=== PATIENT | male | born 1970 | race Caucasian/White ===

== ENCOUNTER → 2016-04-02 | Day surgery (SDC) | payer BC ==
[2016-03-23 12:13] VITALS: BMI 67.0
--- NOTE | 2016-03-23 12:45 | PAT Medication Instructions ---
Service Date Mar 23, 2016. Current Home Medication List Aspirin (Aspirin Ec), 81 MG PO HS Fluticasone Propionate (Nasal) (Flonase Allergy Relief), 1 SPRAY NA BID Hydrochlorothiazide (Hctz), 25 MG PO HS Ketoconazole (Ketoconazole), 1 DOSE TOP DAILY PRN for ABDOMEN Sertraline (Zoloft), 50 MG PO HS Zolpidem Tartrate (Ambien), 10 MG PO HS Medication Instructions For Your Scheduled Surgery - Check with surgeon for instructions: Aspirin (Aspirin Ec), 81 MG PO HS - Hold the following medications 24 hours prior to surgery: Ketoconazole (Ketoconazole), 1 DOSE TOP DAILY PRN for ABDOMEN - Take the following medications the morning of surgery with a sip of water: Fluticasone Propionate (Nasal) (Flonase Allergy Relief), 1 SPRAY NA BID - Take the following medications as scheduled the night before surgery: Zolpidem Tartrate (Ambien), 10 MG PO HS Sertraline (Zoloft), 50 MG PO HS Hydrochlorothiazide (Hctz), 25 MG PO HS Fluticasone Propionate (Nasal) (Flonase Allergy Relief), 1 SPRAY NA BID If you have any questions please call us at [phone] (Chelsea Mcgregor PA-C) or [phone] or [phone]
[2016-03-23 13:08] LABS: BASO % 0.4 %; BASO ABS # 0.04 K/uL (0-0.2); COMPLETE YES; EOS % 4.3 %; HEMATOCRIT 42.9 % (42-52); IG% 0.2 %; LYMPH % 24.5 %; LYMPH ABS # 2.34 K/uL (1.2-3.4); MEAN CELL VOLUME 96.4 fL (80-100); MEAN CORPUSCULAR HEMOGLOBIN 31.9 pg (25-34); MEAN CORPUSCULAR HGB CONC 33.1 g/dl (32-36); MEAN PLATELET VOLUME 9.7 fL (7.4-10.4); MONO % 9.2 %; NEUT % 61.4 %; PLATELET COUNT 274 K/uL (130-400); RED BLOOD COUNT 4.45 M/uL (4.7-6.1); WHITE BLOOD COUNT 9.57 K/uL (4.8-10.8)
[2016-03-23 13:36] LABS: BUN/CREATININE RATIO 22.3 (10-20); CALCIUM 9.2 mg/dl (8.5-10.1); CREATININE 0.65 mg/dl (0.60-1.40); POTASSIUM 3.4 mmol/L (3.5-5.1)
--- NOTE | 2016-04-01 15:36 | History and Physical ---
History & Physical Date Apr 01, 2016. Chief Complaint nasal obstruction History of Present Illness The patient is a 46 year old male with complaints of septal deviation Additional History Hepatic Disease: No Endocrine Disorder: No Kidney Disease: No Hypertension: Yes Heart Disease: No Bleeding Tendencies: No Infectious Diseases: No Allergies Coded Allergies: Acetaminophen (Verified Allergy, Mild, DOESNT WORK AND CONSTIPATION, ) BEE STING (Verified Allergy, Mild, HIVES, 03/23/16) Oxycodone (Verified Allergy, Mild, DOESNT WORK AND CONSTIPATION, 03/23/16) Home Medications Scheduled Aspirin (Aspirin Ec), 81 MG PO HS Fluticasone Propionate (Nasal) (Flonase Allergy Relief), 1 SPRAY NA BID Hydrochlorothiazide (Hctz), 25 MG PO HS Sertraline (Zoloft), 50 MG PO HS Zolpidem Tartrate (Ambien), 10 MG PO HS Scheduled PRN Ketoconazole (Ketoconazole), 1 DOSE TOP DAILY PRN for ABDOMEN Physical Examination Skin: warm/dry, no rash Eyes: normal inspection, EOMI, sclerae normal ENT: normal ENT inspection, pharynx normal Head: normocephalic, atraumatic Neck: supple, no adenopathy, trachea midline Respiratory/Chest: lungs clear, normal breath sounds, no respiratory distress Cardiovascular: regular rate, rhythm, no edema, no murmur Abdomen / GI: normal bowel sounds, non tender Back: normal inspection Extremities: normal inspection, normal range of motion Neurologic/Psych: no motor/sensory deficits, alert, normal reflexes, oriented x 3 Diagnosis septal deviation Plan of Treatment septoplasty, celon turbinates
[~2016-04-02] VITALS: Ht 175.3 cm; Wt 203.2 kg
[~2016-04-02] MED LIST: ACET-749 PO; ASPI81TA28 PO; ATROPINE SULFATE 0.1 MG/ML 5ML SYR IV PRN; CEFAZOLIN 3000 MG/65 ML D5W IV SCH; EpHEDrine SULFATE INJ 50 MG/ML AMP IV PRN; FENTANYL CITRATE INJ 50 MCG/1 ML 2 ML VIAL IV PRN; FENTANYL CITRATE INJ 50 MCG/1 ML 2 ML VIAL ONE; FLUT0.15; HYDR25TA4 PO; IBUPROFEN 600 MG TAB PO PRN; KETAMINE HCL INJ 50 MG/ML 10 ML VIAL ONE; KETOROLAC TROMETHAMINE 30 MG/ML VIAL IV. PRN; LACTATED RINGER'S 1000ML 1,000 ML IV SCH; LIDOCAINE/EPINEPHRINE 2% 1:200,000 20 ML SDV INJ ONE; MIDAZOLAM HCL 1 MG/ML 2ML VIAL ONE; MIX: 4% LIDOCAINE 4ML W/1 ML EPI 1:1000 TOP ONE; MUPIROCIN 2% OINT 22 GM TUBE TOP ONE; NZRCR TOP; ONDANSETRON INJ 2 MG/ML 2 ML VIAL IV PRN; ONDANSETRON INJ 2 MG/ML 2 ML VIAL ONE; SERT50TA PO; SODIUM CHLORIDE 0.9% 1000ML 1,000 ML IV SCH; TETRACAINE 4% TOPICAL SOLUTION TOP ONE; ZOLP10TA PO; [UNRECOGNIZED DRUG - SUPPLY] TOP ONE
--- NOTE | 2016-04-02 07:12 | History & Physical Bridge Note ---
H&P Re-Evaluation Bridge Note: I have examined the patient, reviewed the History & Physical and in the interval since the performance of the History & Physical I have noted the following changes of clinical significance: No changes noted
[2016-04-02 08:41] VITALS: BP 150/80; PULSE 62; TEMP 36.8; O2SAT 93; Ht 175.3 cm; Wt 203.2 kg
--- NOTE | 2016-04-02 11:01 | Discharge Instructions ---
Discharge Instructions Admission Reason for Admission: Septal Deviation Discharge Discharge Diagnosis / Problem: same Discharge Goals Goal(s): Improve function Activity Recommendations Activity Limitations: resume your previous activity . Instructions / Follow-Up Instructions / Follow-Up ACTIVITY RECOMMENDATIONS: * Being up and around is good, but no strenuous activity, heavy lifting or physical exertion for one week. * Keep your head elevated 30 degrees when lying down or sleeping. * Do not blow your nose for 48 hours, sniff back instead. * Avoid hot showers. OVER THE COUNTER MEDICATIONS: * You may use Tylenol * Avoid aspirin or aspirin containing products, e.g. as they may increase bleeding. SPECIAL CARE INSTRUCTIONS: * Expect to have bloody drainage from your nose and/or down your throat for one to three days. Change drip pad as needed. * Begin irrigating your nose with saline solution today, at least six to ten times per day and sniff back to help remove old clots or crust. * You may experience nasal and facial congestion, pain and pressure, this is normal. * Please call with any significant and/or progressive pain, redness, swelling around the eyes, visual changes, fever of 101.5 degrees F, active bleeding or any problems or concerns. * If active bleeding occurs, spray the nose three times at one minute intervals with Afrin spray and call or cell phone: . If unable to reach the doctor, go to the nearest Emergency Department. Special Diet: * Avoid extremely hot fluids. FOLLOW UP VISIT: Follow-up Visit with Dr. Villanueva If not already scheduled, please call to schedule. Current Hospital Diet Patient's current hospital diet: Discharge Diet Recommended Diet: Regular Diet Procedures Procedures Performed: Septoplasty, Celon Turbinates Pending Studies Studies pending at discharge: no Medical Emergencies . Who to Call and When: Medical Emergencies: If at any time you feel your situation is an emergency, please call 911 immediately. . Non-Emergent Contact Non-Emergency issues call your: Primary Care Provider . "Provider Documentation" section prepared by Britney Villanueva. VTE Core Measure Inpt VTE Proph given/why not?: SCD's [place] Drug Monitoring Program Search Results: no issues identified
--- NOTE | 2016-04-02 11:19 | OPERATIVE REPORT ---
DATE OF OPERATION: 04/02/2016 PREOPERATIVE DIAGNOSES: Septal deviation and nasal obstruction contributing to sleep apnea. POSTOPERATIVE DIAGNOSES: Same. PROCEDURE: Septoplasty, turbinate reduction. SURGEON: Dr. Villanueva. ANESTHESIA: MAC. BLOOD LOSS: 10 mL HISTORY: A 46-year-old man with BMI of 67, has nasal obstruction, inability to wear CPAP. DESCRIPTION OF PROCEDURE: The patient was brought to the operating room, placed in supine position, sedated, topical anesthesia was obtained using cottonoids with topical solution of 4% Xylocaine. Cottonoids with 4 mL of 4% Xylocaine with 1 mL of epinephrine was also used. Injection of 2% Xylocaine with 1:100,000 strength epinephrine was used for local anesthesia. The inferior turbinates were treated with radiofrequency volume reduction using the My True Fit machine with the setting at #18 creating 3 lesions in each inferior turbinate. The turbinates were outfractured. The left hemitransfixion incision was made and mucoperichondrium elevated off the left side of septum. Superior inferior tunnels were elevated and then bilateral posterior tunnels were elevated, isolating a large bony and cartilaginous spur projecting to the left. The spur was removed in small pieces using the Presto-Betina rongeurs and using the Jonas forceps. The septum was closed using continuous mattress suture of 4-0 plain gut. Anterior packing of Gelfoam with Bactroban ointment was placed. The patient tolerated the procedure well and was taken to recovery area in satisfactory condition. I attest to the content of the Intraoperative Record and any orders documented therein. Any exceptio ns are noted below.
[2016-04-02 11:30] VITALS: BP 114/41; PULSE 62; TEMP 37.2; O2SAT 92
[2016-04-02 12:00] VITALS: BP 136/63; PULSE 68; TEMP 36.8; O2SAT 92
--- NOTE | 2016-04-02 12:27 | Anesthesiology Progress Note ---
Anesthesia Post Op Note Date & Time Apr 02, 2016 at 12:27 Vital Signs Pain Intensity: 1 Vital Signs Past 12 Hours Date Time Temp Pulse Resp B/P Pulse Ox O2 Delivery O2 Flow Rate FiO2 04/02/16 11:30 37.2 62 22 114/41 92 Room Air 04/02/16 11:20 36.9 67 18 114/49 92 Room Air 04/02/16 11:10 61 14 134/51 95 Mask 10 04/02/16 11:01 36.7 86 16 137/46 97 Mask 10 04/02/16 08:41 36.8 62 16 150/80 93 Room Air Notes Mental Status: alert / awake / arousable, participated in evaluation Pt Amnestic to Procedure: Yes Nausea / Vomiting: adequately controlled Pain: adequately controlled Airway Patency, RR, SpO2: stable & adequate BP & HR: stable & adequate Hydration State: stable & adequate Anesthetic Complications: no major complications apparent
[2016-04-02 12:33] VITALS: BP 134/64; PULSE 63; TEMP 36.3; O2SAT 92
== END | disposition home or self-care (01) ==
LOC: C.ACU 08:09
PROVIDERS: ATTEND Otolaryngology
DX: J34.2 Deviated nasal septum (principal); Z79.82 Long term (current) use of aspirin; Z79.899 Other long term (current) drug therapy